=== PATIENT | male | born 1990 | race African-American/Black ===

== ENCOUNTER 2023-06-17 09:56 | Emergency (ER) | payer SELFPAY ==
[2023-06-17] MEDS ORDERED: Lidocaine 1% (PF) 30 ML VIAL ONE (10:27)
[2023-06-17 11:44] LABS: SARS-CoV-2 NAA Rapid Test Not Detected (NotDetected)
== END 2023-06-17 12:06 | disposition home or self-care (01) ==
LOC: CSHERS 09:56
DX: B34.9 Viral infection, unspecified (principal); L02.91 Cutaneous abscess, unspecified; F17.210 Nicotine dependence, cigarettes, uncomplicated; Z20.822 Contact with and (suspected) exposure to COVID-19
CPT/HCPCS: 99284; J2001